=== PATIENT | male | born 1960 | race African-American/Black ===

== ENCOUNTER 2023-04-18 12:31 | Emergency (ER) | payer MEDICAID ==
[~2023-04-18] VITALS: Ht 177.8 cm; Wt 62.0 kg
[2023-04-18 12:33] VITALS: BP 166/98; PULSE 80; RESP 16; TEMP 98.9; O2SAT 98
[2023-04-18] MEDS: SODIUM CHLORIDE 0.9% 1,000 ML IV ONE (13:00)
[2023-04-18] MEDS ORDERED: MECLIZINE 25MG TABLET PO ONE (13:00)
[2023-04-18] MEDS: MECLIZINE 12.5MG TABLET PO NR (13:15)
[2023-04-18 14:36] LABS: BASOPHILS % 0.3 % (0.0-2.0); EOSINOPHILS % 0.2 % (0.0-5.0); HEMATOCRIT. 39.3 % (42.0-52.0); HEMOGLOBIN. 13.2 g/dL (14.0-18.0); LYMPHOCYTES % 16.6 % (20.0-50.0); MEAN CORPUSCULAR HGB CONC 33.5 g/dL (31.0-37.0); MEAN CORPUSCULAR VOLUME 89.6 fL (80.0-94.0); MEAN PLATELET VOLUME 11.5 fl (7.4-10.4); MONOCYTES % 6.9 % (2.0-8.0); PLATELET 147 x1000/uL (130-400); RED BLOOD CELL COUNT 4.39 mill/uL (4.7-6.1); RED CELL DISTRIBUTION WIDTH 13.5 % (11.6-14.6); WHITE BLOOD COUNT 6.3 x1000/uL (4.5-11.0)
[2023-04-18 14:46] LABS: INR 1.1; PROTHROMBIN TIME 11.8 sec (9.6-11.0)
[2023-04-18 15:09] LABS: ALANINE AMINOTRANSFERASE 26 IU/L (10-49); ALBUMIN 4.2 g/dL (3.2-4.8); ASPARTATE AMINOTRANSFERASE 35 IU/L (<34); CALCIUM 9.4 mg/dL (8.7-10.4); CARBON DIOXIDE 28 mEq/L (21-32); CHLORIDE 105 mEq/L (98-107); CREATININE 1.1 mg/dL (0.6-1.3); GLUCOSE 105 mg/dL (70-105); POTASSIUM 4.1 mEq/L (3.5-5.1); SODIUM 140 mEq/L (136-145); UREA NITROGEN BLOOD 11 mg/dL (9-23)
[2023-04-18 15:13] LABS: TROPONIN I HIGH SENSITIVITY 60 ng/L (3.0-53)
[2023-04-18 17:02] LABS: TROPONIN I HIGH SENSITIVITY 65 ng/L (3.0-53)
[2023-04-18] MEDS ORDERED: MECL-299 MT (17:08)
== END 2023-04-18 18:10 | disposition home or self-care (01) ==
LOC: ER 12:31
DX: R42 Dizziness and giddiness (principal)
CPT/HCPCS: 80053; 85025; 85610; 84484; 36415; 70450; 96360; 96361; 99284; J8597; J7030; Z7610 ×3